=== PATIENT | male | born 1955 | race Caucasian/White ===

== ENCOUNTER 2023-04-28 08:04 | Inpatient (IN) | payer BC ==
[~2023-04-28] VITALS: Ht 182.9 cm; Wt 135.2 kg
[2023-04-28] VITALS (13 sets, daily range): BP systolic 98–138; BP diastolic 57–92
[2023-04-28 09:21] LABS: BASOPHILS ABSOLUTE AUTO 0.03 K/mm3 (0.00-0.23); BASOPHILS PERCENT AUTO 0 % (0-2); EOSINOPHILS ABSOLUTE AUTO 0.11 K/mm3 (0.00-0.68); EOSINOPHILS PERCENT AUTO 1 % (0-6); Hematocrit 52.1 % (37.0-53.0); Hemoglobin 17.2 g/dL (13.5-17.5); IMMATURE GRAN ABSOLUTE AUTO 0.06 K/mm3 (0.00-0.10); IMMATURE GRAN PERCENT AUTO 0 % (0-1); LYMPHOCYTES ABSOLUTE AUTO 0.37 K/mm3 (0.84-5.20); LYMPHOCYTES PERCENT AUTO 3 % (21-46); MONOCYTES ABSOLUTE AUTO 0.78 K/mm3 (0.16-1.47); MONOCYTES PERCENT AUTO 5 % (4-13); Mean Corpuscular Volume 88 fL (80-100); Mean Platelet Volume 10.3 fL (9.1-12.4); NEUTROPHILS ABSOLUTE AUTO 13.14 K/mm3 (1.96-9.15); NEUTROPHILS PERCENT AUTO 91 % (41-73); Platelet Count 299 K/mm3 (150-400); RDW Standard Deviation 45.5 fL (35.1-46.3); Red Blood Cell Count 5.93 M/mm3 (4.30-5.90); White Blood Cell Count 14.49 K/mm3 (4.00-11.30)
[2023-04-28 09:40] LABS: Bilirubin, Total 0.9 mg/dL (0.1-1.0); Bun/Creatinine Ratio 15.7 (12.0-20.0); Calcium, Blood 9.4 mg/dL (8.5-10.1); Creatinine, Blood 1.27 mg/dL (0.60-1.20); Globulin, Blood 4.2 g/dL (2.2-4.0); Potassium, Blood 4.5 mmol/L (3.5-5.5); Total Protein, Blood 8.2 g/dL (6.4-8.2)
[2023-04-28 09:55] LABS: BAND PERCENT MAN 3 % (0-8); BASOPHILS PERCENT MAN 0 % (0-2); EOSINOPHILS PERCENT MAN 0 % (0-6); LYMPHOCYTES ABSOLUTE MAN 0.72 K/mm3 (0.84-5.20); LYMPHOCYTES PERCENT MAN 5 % (21-46); MONOCYTES ABSOLUTE MAN 0.72 K/mm3 (0.16-1.47); MONOCYTES PERCENT MAN 5 % (4-13); NEUTROPHILS ABSOLUTE MAN 13.04 K/mm3 (1.96-9.15); SEG NEUTROPHILS PERCENT MAN 87 % (41-73); TOTAL CELLS COUNTED 100
--- NOTE | 2023-04-28 10:37 | NUR ---
PATIENT IS S/P STEMI, IN A RECLINER BROUGHT TO RECOVERY AREA OF THE [facility]. PLACED ON THE MONITOR. RIGHT RADIAL TR BAND IN PLACE WITH 11 ML OF AIR IN THE BAND PLETH WAVEFORM GOOD. AWAITING A BED ASSIGNMENT. NO CHEST PAIN, NO BLEEDING NO HEMATOMA AT THE RIGHT RADIAL SITE. PATIENT IS MAKING CALLS TO FAMILY AND WORK. WILL HAVE FAMILY BRING HIS CPAP TO THE HOSPITAL FOR USE TONIGHT. CALL LIGHT IN REACH.
--- NOTE | 2023-04-28 10:55 | NUR ---
COVID TEST FROM THE ER FAILED, CONFIRMED BY THE LAB, SO REPEATED AT THE BEDSIDE IN THE HEART CENTER. NEGATIVE RESULT. CHARTED ACCORDINGLY.
[2023-04-28 11:21] LABS: Influenza A, PCR NEGATIVE (NEGATIVE); Influenza B, PCR NEGATIVE (NEGATIVE); Resp Syncytial Virus, PCR NEGATIVE (NEGATIVE); SARS-Cov-2 (COVID-19) PCR, MMC NEGATIVE (NEGATIVE)
--- NOTE | 2023-04-28 11:27 | NUR ---
PT REPORTS FEELING NAUSEATED, NO EMESIS, REPORTS STARTED LAST NIGHT; DENEIS CHEST PAIN. DR ESQUIVEL NOTIFIED, ORDERS RECEIVED; ADMINISTERED 4 MG IV ZOFRAN.
--- NOTE | 2023-04-28 11:34 | NUR ---
PT O2 SATS DROPPING TO 86% ON RA, PLACED ON 2L NC, SPO2 90%. PT DENIES FEELING SOB. PT REPORTS NAUSEA SLIGHTLY IMPROVED AFTER ZOFRAN. DR ESQUIVEL IN TO [facility] PT.
--- NOTE | 2023-04-28 11:45 | NUR ---
PT REPORTS NAUSEA RESOLVED POST ZOFRAN.
--- NOTE | 2023-04-28 12:30 | NUR ---
ARRICAL TO PCU PT ARRIVED TO PCU7 AT 1153 FROM MED CARE MANAGER. REPORT TAKEN FROM RN AT BEDSIDE. PT TRANSPORTED IN WHEELCHAIR, ABLE TO STAND AND WALK TO BED IN ROOM. A&OX4. VSS. TR BAND IN PLACE W/O BLEEDING, BRUISING, OR EVIDENCE OF HEMATOMA. PT DENIES CP/PRESSURE ON ARRIVAL AND REPORTS IMPROVEMENT IN S/SX SINCE ARRIVAL TO ED. PT ORIENTED TO ROOM, BED IN LOWEST POSITION.
--- NOTE | 2023-04-28 12:51 | NUR ---
UPDATE 2ML AIR REMOVED FROM TR BAND. NO BLEEDING, SWELLING, OR HEMATOMA NOTED. PT EDUCATED ON S/SX TO REPORT. CALL LIGHT WITHIN REACH.
[2023-04-28] MEDS ORDERED: ZOCOR20 MG PO (13:02)
[2023-04-28] MEDS ORDERED: METF500 PO (13:04)
[2023-04-28] MEDS ORDERED: MELO7.5 PO (13:04)
[2023-04-28] MEDS ORDERED: LEVSOD75 PO (13:04)
--- NOTE | 2023-04-28 18:01 | NUR ---
END OF SHIFT NOTE: PT A&OX4 THIS SHIFT, ABLE TO MAKE NEEDS KNOWN TO STAFF. FOLLOWS COMMANDS AND COMPLIANT WITH CARE. HR SR/ST 90'S-100'S, BP STABLE. SPO2 MOSTLY 90-93% ON 2-5L O2. PT DENIES C/O NAUSEA/VOMITING THIS PM. LETHARGIC AND LYING IN BED. TR BAND IN PLACE AND FULLY DEFLATED. NO BLEEDING, BRUISING, OR HEMATOMA. PT DENIES PAIN IN THE R RADIAL SITE, CIRCULATION ASSESSED FREQUENTLY WITH CAP REFILL <3SEC. PT ABLE TO INDEPENDENTLY REPOSITION IN BED. FAMILY AT BEDSIDE. BED IN LOWEST POSITION, CALL LIGHT WITHIN REACH. WILL REPORT TO ONCOMING RN.
--- NOTE | 2023-04-28 18:41 | NUR ---
TR BAND REMOVAL TR BAND REMOVED FROM R RADIAL SITE APPROX 1835. PULSE STRONG. NO SIGNS OF BLEEDING, BRUISING, OR HEMATOMA. PT DENIES PAIN. SITE COVERED WITH TRANSPARENT TEGADERM DRESSING.
[2023-04-29 03:54] VITALS: BP 119/71
[2023-04-29 04:23] LABS: Hematocrit 46.2 % (37.0-53.0); Hemoglobin 15.2 g/dL (13.5-17.5); Mean Corpuscular HGB 28.8 pg (26.0-34.0); Mean Corpuscular HGB Conc 32.9 g/dL (31.5-36.5); Mean Corpuscular Volume 88 fL (80-100); Mean Platelet Volume 10.5 fL (9.1-12.4); Platelet Count 246 K/mm3 (150-400); RDW Coefficient Variation 14.5 % (11.7-14.2); RDW Standard Deviation 46.4 fL (35.1-46.3); Red Blood Cell Count 5.28 M/mm3 (4.30-5.90); White Blood Cell Count 8.07 K/mm3 (4.00-11.30)
--- NOTE | 2023-04-29 04:47 | NUR ---
SHIFT SUMMARY THIS RN ASSUMED CARE OF PATIENT AT 1900. PT A&O X4. ABLE TO MAKE NEEDS KNOWN. SR/ST ON MONITOR WITH HR 90-100'S. BP STABLE. TEMP MAX 101, MEDICATING PER EMAR. ON 2L VIA NC WHEN AWAKE TO MAINTAIN SPO2 >90%; ON CPAP FOR NOC WITH 4L BLEED IN TO MAINTAIN SPO2. PT UNABLE TO HAVE BOWEL MOVEMENT FOR STOOL SAMPLE AT THIS TIME. PT AWARE OF NEED FOR SAMPLE. BED IN LOWEST POSITION AND CALL LIGHT WITHIN REACH. THIS RN WILL REPORT TO ONCOMING RN
[2023-04-29 04:48] LABS: BAND PERCENT MAN 20 % (0-8); BASOPHILS PERCENT MAN 0 % (0-2); EOSINOPHILS PERCENT MAN 0 % (0-6); LYMPHOCYTES PERCENT MAN 5 % (21-46); MONOCYTES PERCENT MAN 5 % (4-13); NEUTROPHILS ABSOLUTE MAN 7.26 K/mm3 (1.96-9.15); SEG NEUTROPHILS PERCENT MAN 70 % (41-73); TOTAL CELLS COUNTED 100
[2023-04-29 04:53] LABS: Alanine Aminotransfer (ALT/SGP 24 U/L (12-78); Albumin, Blood 3.1 g/dL (3.4-5.0); Albumin/Globulin Ratio 0.9 (0.8-1.8); Alk Phos 93 U/L (50-136); Anion Gap 4 mmol/L (6-16); Aspartate Aminotrans (AST/SGOT 27 U/L (12-37); Bilirubin, Total 0.5 mg/dL (0.1-1.0); Blood Urea Nitrogen 23 mg/dL (8-24); Bun/Creatinine Ratio 22.8 (12.0-20.0); CHOL/HDL RATIO 3.1; CO2, Blood 22 mmol/L (21-32); Calcium, Blood 7.9 mg/dL (8.5-10.1); Chloride, Blood 112 mmol/L (98-108); Cholesterol 102 mg/dL (50-200); Creatinine, Blood 1.01 mg/dL (0.60-1.20); Globulin, Blood 3.5 g/dL (2.2-4.0); Glomerular Filtration Rate 82 (60-); Glucose, Blood 124 mg/dL (70-99); HDL Cholesterol 33 mg/dL (>39); LDL/HDL RATIO 1.7; Low Density Lipoprotein Chol 55 mg/dL (0-110); Potassium, Blood 3.7 mmol/L (3.5-5.5); Sodium, Blood 138 mmol/L (136-145); Total Protein, Blood 6.6 g/dL (6.4-8.2); Triglycerides 69 mg/dL (30-160); Very Low Density Lipoprot Chol 13 mg/dL (6-32)
[2023-04-29 08:22] VITALS: BP 114/72
[2023-04-29 11:54] LABS: Source, Urine Clean Catch
[2023-04-29 12:41] LABS: Bilirubin, Urine Neg (Neg); Blood, Urine 2+ (Neg); Glucose Qualitative, Urine Neg (Neg); Ketones, Urine Neg (Neg); Leukocyte Esterase, Urine Neg (Neg); Nitrite, Urine Neg (Neg); Protein, Urine 2+ (Neg); Specific Gravity, Urine 1.015 (1.003-1.022); Urobilinogen, Urine NORM (Normal)
[2023-04-29 12:45] VITALS: BP 100/64
[2023-04-29 13:20] LABS: Appearance, Urine Hazy (Clear); Bacteria Rare /hpf; Color, Urine Yellow (P-Yellow); Squamous Epithelial Cells Few /hpf (Few); White Blood Cells, Urine 0-2 /hpf (0-5)
[2023-04-29 15:30] LABS: Campylobacter Sp Not Detected (NOT DETECT); Enteroaggregative E. coli-EAEC Not Detected (NOT DETECT); Plesiomonas Shigelloides Not Detected (NOT DETECT); Salmonella Sp Not Detected (NOT DETECT); Vibrio Cholerae Not Detected (NOT DETECT); Vibrio Sp Detected (NOT DETECT); Yersinia Enterocolitica Not Detected (NOT DETECT)
[2023-04-29 15:31] LABS: Adenovirus F 40/41 Not Detected (NOT DETECT); Astrovirus Not Detected (NOT DETECT); Cryptosporidium Not Detected (NOT DETECT); Cyclospora Cayetanensis Not Detected (NOT DETECT); E. Coli O157 Not Detected (NOT DETECT); Entamoeba Histolytica Not Detected (NOT DETECT); Enteropathogenic E. coli-EPEC Not Detected (NOT DETECT); Enterotoxigenic E. coli-ETEC Not Detected (NOT DETECT); Giardia Lamblia Not Detected (NOT DETECT); Norovirus GI/GII Detected (NOT DETECT); Rotavirus A Not Detected (NOT DETECT); Sapovirus Not Detected (NOT DETECT); Shiga Toxin-prod E. coli-STEC Not Detected (NOT DETECT); Shigella/Enteroin E. coli-EIEC Not Detected (NOT DETECT)
[2023-04-29 16:35] VITALS: BP 101/54
--- NOTE | 2023-04-29 18:56 | NUR ---
PT SUMMARY: NO ACUTE CHANGE FOR THE SHIFT, CT ABD WAS DONE THIS MORNING SHOWS HERNIA AND ENLARGED PROSTATE WHICH THE PT ALREADY HAS AND IS AWARE, GI PANEL CAME BACK POSITIVE FOR NOROVIRUS AND CDIFF PT MADE AWARE, REMAINED ON ISOLATION, PT WAS EDUCATED ABOUT PRECAUTION AND SAFETY IS PT IS TO GO HOME. PT STILL HAS LOOSE YELLOW BROWN STOOL MOSTLY SMALL AMOUNTS WITH PASSING GAS. UA COLLECTED AWAITING FOR CULTURE RESULT. VITALS HAS BEEN STABLE PT COMPLAINT WITH CPAP USE WHEN ASLEEP. PT HAS BEEN AMBUALTING TO THE BATHROOM SBA FOR TOIELTING. NO OTHER ISSUES AT THIS TIME, PT C/O SOME NAUSEA TOLERATING PO INTAKE, ANTI NAUSEA MEDS OFFERED PT REFUSED. PT IN BED NOW RESTING, CALL LIGHTS IN REACH WILL REPORT TO ONCOMNG SHIFT
[2023-04-29 19:40] VITALS: BP 122/73
[2023-04-29 23:42] VITALS: BP 118/72
[2023-04-30 04:28] LABS: BASOPHILS PERCENT AUTO 0 % (0-2); EOSINOPHILS ABSOLUTE AUTO 0.13 K/mm3 (0.00-0.68); EOSINOPHILS PERCENT AUTO 2 % (0-6); Hematocrit 44.8 % (37.0-53.0); Hemoglobin 14.6 g/dL (13.5-17.5); IMMATURE GRAN ABSOLUTE AUTO 0.02 K/mm3 (0.00-0.10); IMMATURE GRAN PERCENT AUTO 0 % (0-1); LYMPHOCYTES ABSOLUTE AUTO 1.09 K/mm3 (0.84-5.20); LYMPHOCYTES PERCENT AUTO 13 % (21-46); MONOCYTES ABSOLUTE AUTO 0.97 K/mm3 (0.16-1.47); MONOCYTES PERCENT AUTO 12 % (4-13); Mean Corpuscular HGB Conc 32.6 g/dL (31.5-36.5); Mean Corpuscular Volume 89 fL (80-100); NEUTROPHILS ABSOLUTE AUTO 5.91 K/mm3 (1.96-9.15); NEUTROPHILS PERCENT AUTO 73 % (41-73); Platelet Count 238 K/mm3 (150-400); RDW Coefficient Variation 14.6 % (11.7-14.2); RDW Standard Deviation 47.4 fL (35.1-46.3); Red Blood Cell Count 5.04 M/mm3 (4.30-5.90); White Blood Cell Count 8.12 K/mm3 (4.00-11.30)
[2023-04-30 04:44] LABS: Bun/Creatinine Ratio 18.3 (12.0-20.0); Calcium, Blood 7.6 mg/dL (8.5-10.1); Creatinine, Blood 0.93 mg/dL (0.60-1.20); Potassium, Blood 3.2 mmol/L (3.5-5.5)
--- NOTE | 2023-04-30 04:55 | NUR ---
SHIFT SUMMARY THIS RN ASSUMED CARE OF PATIENT AT 1900. SR ON MONITOR WITH HR 70-80'S. BP STABLE. AFEBRILE DURING THIS SHIFT. ON RA WHILE AWAKE; USING CPAP WITH 2-4L BLEED IN FOR NOC. PATIENT ABLE TO MANAGE ADL'S INDEPENDENTLY. X2 EPISODES OF DIARRHEA DURING THIS SHIFT. PT STATING THAT 1X EPISODE OF INCONTINENCE D/T URGENCY AND INABILITY TO GET TO BATHROOM IN TIME. ATTENDS GIVEN TO PATIENT. PT ENCOURAGED TO DRINK FLUIDS DURING THIS SHIFT. BED IN LOWEST POSITION AND CALL LIGHT WITHIN REACH. THIS RN WILL REPORT TO ONCOMING RN.
[2023-04-30 08:08] VITALS: BP 130/73
[2023-04-30 16:41] VITALS: BP 125/76
--- NOTE | 2023-04-30 18:03 | NUR ---
PT SUMMARY: PT TRANSITIONED TO MEDICAL STATUS WITH TELE. NO ACUTE CHANGE FOR THE SHIFT, VITALS HAS BEEN STABLE, PT DENIES ANY CHEST AND ABD PAIN, NAUSEA WITH DINNER MEDICATED WITH ZOFRAN NO EMESIS. PT REPORTED 2 EPISODES OF LOOSE STOOLS. PT HAS BEEN INDEPENDENT IN THE ROOM, TOLERATING MEALS AT THIS TIME. NO OTHER ISSUES REPORTED, BROTHER AT BEDSIDE WAS GIVEN UPDATE REGARDING PT'S STATUS WAS GIVEN WRITTEN INFO ABOUT PT'S STOMACH BUGS PER REQUESTS. PT HAS BEEN CALLING APPROPRIATELY. WILL REPORT TO ONCOMING SHIFT
[2023-04-30 20:38] VITALS: BP 122/80
[2023-04-30 23:07] VITALS: BP 116/71
--- NOTE | 2023-05-01 00:06 | NUR ---
PATIENT UP IN ROOM WITHOUT DIFFICULTY. NO C/O CHEST PAIN. RIGHT WRIST SITE REMAINS STABLE. PATIENT VERBALIZED NO BM SINCE THIS MORNING. CPAP AT BEDSIDE FOR SLEEP.
[2023-05-01 05:23] VITALS: BP 119/73
[2023-05-01 05:34] LABS: BASOPHILS ABSOLUTE AUTO 0.01 K/mm3 (0.00-0.23); BASOPHILS PERCENT AUTO 0 % (0-2); EOSINOPHILS ABSOLUTE AUTO 0.33 K/mm3 (0.00-0.68); EOSINOPHILS PERCENT AUTO 6 % (0-6); Hemoglobin 13.7 g/dL (13.5-17.5); IMMATURE GRAN ABSOLUTE AUTO 0.01 K/mm3 (0.00-0.10); IMMATURE GRAN PERCENT AUTO 0 % (0-1); LYMPHOCYTES PERCENT AUTO 24 % (21-46); MONOCYTES ABSOLUTE AUTO 0.84 K/mm3 (0.16-1.47); MONOCYTES PERCENT AUTO 14 % (4-13); Mean Corpuscular HGB 28.7 pg (26.0-34.0); Mean Corpuscular HGB Conc 32.6 g/dL (31.5-36.5); Mean Corpuscular Volume 88 fL (80-100); Mean Platelet Volume 10.6 fL (9.1-12.4); NEUTROPHILS ABSOLUTE AUTO 3.38 K/mm3 (1.96-9.15); NEUTROPHILS PERCENT AUTO 57 % (41-73); Platelet Count 224 K/mm3 (150-400); RDW Coefficient Variation 14.4 % (11.7-14.2); RDW Standard Deviation 46.5 fL (35.1-46.3); Red Blood Cell Count 4.78 M/mm3 (4.30-5.90); White Blood Cell Count 5.97 K/mm3 (4.00-11.30)
--- NOTE | 2023-05-01 06:02 | NUR ---
SUMMARY PATIENT SLEEPING OFF AND ON T/O NIGHT. UP SEVERAL TIMES T/O NIGHT TO VOID. SLIGHT SOB WITH ACTIVITY, PATIENT VERBALIZED THIS IS BASELINE. PATIENT UP TO TOILET EARLY THIS MORNING HAVING A SOFT LOOSE BROWN BM. PATIENT VERBALIZED THAT IT APPEARS TO BE THICKENING UP. NO C/O CP T/O NIGHT. RIGHT WRIST ACCESS SITE WITH DRESSING CD&I
[2023-05-01 06:18] LABS: Albumin, Blood 2.9 g/dL (3.4-5.0); Anion Gap 6 mmol/L (6-16); Blood Urea Nitrogen 14 mg/dL (8-24); Bun/Creatinine Ratio 14.6 (12.0-20.0); CO2, Blood 23 mmol/L (21-32); Chloride, Blood 110 mmol/L (98-108); Creatinine, Blood 0.96 mg/dL (0.60-1.20); Glomerular Filtration Rate 87 (60-); Glucose, Blood 105 mg/dL (70-99); Phosphorus, Blood 2.4 mg/dL (2.5-4.9); Potassium, Blood 3.5 mmol/L (3.5-5.5); Sodium, Blood 139 mmol/L (136-145)
[2023-05-01 08:01] VITALS: BP 123/77
[2023-05-01] MEDS ORDERED: VANCOCIN HCL125 MG PO (10:25)
[2023-05-01] MEDS ORDERED: VISBIOME 112.51 EACH PO (10:27)
[2023-05-01] MEDS ORDERED: CIPR500 PO (11:01)
--- NOTE | 2023-05-01 11:41 | NUR ---
PT DISCHARGE TODAY WITH DISCHARGE ORDERS, PRESCRIPTION SENT TO [facility] IN [place]. PT LIVES IN [place] AND HAS A PCP UP THERE PT WAS INSTRUCTED TO MAKE AN APPOINTMENT SOON PT GETS HOME. PT VERBALIZED UNDERSTANDING OF THE DISCLOSED NEW MEDICATION AND DISCHARGE INSTRUCTIONS. ALL BELONGINGS SENT WITH THE PT, BROTHER KIT CAME IN AND PICKED UP PT, PROVIDED TRANSPORTATION.
== END 2023-05-01 11:31 | disposition home or self-care (01) | DRG 372 ==
LOC: ER 08:04 → PCU 08:08 → ICUE 08:08 → PCU 09:47 → ER 09:47 → PCU 11:55 → ICUE 11:55 → PCU 11:55
PROVIDERS: Family Medicine; Physician Assistant; ADMIT Internal Medicine
PROC: B2111ZZ Fluoroscopy of Multiple Coronary Arteries using Low Osmolar Contrast (ICD-10-PCS; principal; 2023-04-28)
PROC: 4A023N7 Measurement of Cardiac Sampling and Pressure, Left Heart, Percutaneous Approach (ICD-10-PCS; 2023-04-28)
DX: A04.72 Enterocolitis due to Clostridium difficile, not specified as recurrent (principal); J98.11 Atelectasis; Z68.41 Body mass index [BMI] 40.0-44.9, adult; A08.11 Acute gastroenteropathy due to Norwalk agent; E87.6 Hypokalemia; I12.9 Hypertensive chronic kidney disease with stage 1 through stage 4 chronic kidney disease, or unspecified chronic kidney disease; E11.22 Type 2 diabetes mellitus with diabetic chronic kidney disease; N18.9 Chronic kidney disease, unspecified; E83.39 Other disorders of phosphorus metabolism; E78.5 Hyperlipidemia, unspecified; G47.33 Obstructive sleep apnea (adult) (pediatric); K21.9 Gastro-esophageal reflux disease without esophagitis; E66.01 Morbid (severe) obesity due to excess calories; R10.13 Epigastric pain; M54.9 Dorsalgia, unspecified; G89.29 Other chronic pain
CPT/HCPCS: 0241U; 36415; 71046; 74177; 76937; 80048; 80053; 80061; 80069; 81001; 82947; 83036; 83690; 84145; 84443; 84484; 85025; 87086; 87324; 87507; 93005; 93010; 93454; 94660; 94762; 96361; 96372; 96374; 96375; 96376; 99152; 99153; 99285-25; A9270; C1769; C1887; C1894; C8929; G0378; J0744; J1644; J1650; J2250; J2405; J3010; J7030; J7050; Q9957; Q9967